=== PATIENT | male | born 1980 | race Caucasian/White ===

== ENCOUNTER 2020-03-28 09:53 | Outpatient (CLI) | payer BC ==
--- NOTE | 2020-03-28 13:00 | RAD ---
LUMBAR SPINE SERIES 2 VIEWS: Date: 03/28/2020 HISTORY: Back pain. FINDINGS: Vertebral bodies are normal in height. There is mild disc narrowing at L3-4 and more pronounced disc narrowing at the L4-5 and L5-S1 levels. Prominent degenerative facet changes are seen in the lower rosmery mbar spine, particularly at L4-5. IMPRESSION: Moderate osteoarthritic changes of the spine. POS: [facility]
== END 2020-03-28 09:54 | disposition home or self-care (01) ==
LOC: BICRAD 09:53
PROVIDERS: ATTEND Family Medicine
DX: M54.9 Dorsalgia, unspecified (principal); M47.816 Spondylosis without myelopathy or radiculopathy, lumbar region
CPT/HCPCS: 72100